=== PATIENT | male | born 2000 | race Caucasian/White ===

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

== ENCOUNTER 2020-04-03 18:35 | Observation (INO) | payer OTHER ==
[2020-04-03] MEDS ORDERED: ACETAMINOPHEN 500 MG TAB PO ONE (18:48)
[2020-04-03] MEDS ORDERED: SODIUM CHLORIDE 0.9% 1000ML 1,000 ML IVS ONE (18:48)
[2020-04-03] MEDS ORDERED: ASPIRIN (CHEWABLE) 81 MG TAB PO ONE (18:48)
--- NOTE | 2020-04-03 19:03 | ED.PDOC ---
History of Present Illness - General Chief Complaint: Problem Stated Complaint: RLQ abd pain and dificulty urinating Time Seen by Provider: 04/03/20 18:48 - History of Present Illness Initial Comments: 19 yo M no significant PMH immunizations up to date presents to ED Mother at bedside c/o RLQ abdominal pain and dysuria x 1 day. Denies fever cough sob recent travel or contact with covid19. Denies fever chills nausea vomiting diarrhea admits chest pain denies sob diaphoresis. No change in diet rest bowel or bladder. Denies drinking or smoking denies FH HTN DM has no PMD for follow up no other c/o today. PPE worn-N95 surgical mask with attached face shield over N95 goggles gloves and face shield over that Allergies/Adverse Reactions: Allergies NO KNOWN ALLERGY Allergy (Verified 04/03/20 18:52) Review of Systems - Review of Systems Constitutional: States: see HPI EENTM: States: see HPI Respiratory: States: see HPI Cardiology: States: see HPI Gastrointestinal/Abdominal: States: see HPI Genitourinary: States: see HPI Musculoskeletal: States: see HPI Skin: States: see HPI Neurological: States: see HPI Endocrine: States: see HPI Hematologic/Lymphatic: States: see HPI All other Systems: Reviewed and Negative Past Medical History (General) - Patient Medical History Hx Seizures: No Hx Stroke: No Hx Dementia: No Hx Asthma: Yes Hx of COPD: No 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 Hx Congestive Heart Failure: No Hx Pacemaker: No Hx Hypertension: No Hx Thyroid Disease: No Hx Diabetes: No Hx Gastroesophageal Reflux: Yes Hx Renal Disease: No Hx Cancer: No Hx of HIV: No Hx Hepatitis C: No Hx MRSA: No Surgical History: tonsillectomy, other - Vaccination History Hx Tetanus, Diphtheria Vaccination: No Hx Influenza Vaccination: Yes Hx Pneumococcal Vaccination: No Immunizations Up to Date: Yes - Social History Hx Tobacco Use: No Hx Chewing Tobacco Use: No Hx Alcohol Use: No Hx Substance Use: No Hx Substance Use Treatment: No Hx Depression: No Hx Physical Abuse: No - Female History Patient is a Female of Child Bearing Age (10 -59 yrs old): No Patient : No Family Medical History - Family History Mother Family History: No Known Living Status: Still Living Hx Family Asthma: Yes Physical Exam - Physical Exam General Appearance: No apparent distress Eye Exam: bilateral normal Ears, Nose, Throat: normal ENT inspection Neck: non-tender, full range of motion Respiratory: no respiratory distress Cardiovascular/Chest: regular rate, rhythm Gastrointestinal/Abdominal: soft, other - tender RLQ Rectal Exam: deferred Back Exam: CVA tenderness (R) Extremity: normal range of motion, non-tender Neurologic: no motor/sensory deficits Skin Exam: normal color Progress - Progress Progress: 04/03/20 19:04 A/P-Abdominal Pain, Chest Pain, Flank Pain, Dysuria-iv bolus asa tylenol cbc cmp lipase trop ekg cxr ct abdomen pelvis cafeteria monitor pulse ox reassess 04/03/20 19:27 EXAM: Chest,1 View CLINICAL INDICATION: 19-year-old male with pain. TECHNIQUE: Single view, AP portable chest was obtained. COMPARISON: 12/23/2018. FINDINGS: Unremarkable cardiac and mediastinal silhouette. Heart size is normal. Lungs are clear without focal opacity, pneumothorax or pleural effusions. The visualized bones are within normal limits. IMPRESSION: No acute cardiopulmonary abnormalities. Electronically signed by: Jessica Mariano MD 04/03/2020 7:17 PM CDT 04/03/20 19:32 EXAM: Abdoment/Pelvis w/o Contrast CLINICAL INDICATION: 19-year-old male with RIGHT lower quadrant pain. COMPARISON: 08/25/2017. EXAMINATION: CT of the abdomen and pelvis was performed without intravenous or oral contrast. Multiplanar reformatted images were provided. This exam was performed according to our departmental dose optimization program which includes use of automated exposure control, adjustment of the mA and/or kV according to patient size and/or use of iterative reconstruction technique. FINDINGS: Evaluation of solid organ pathology is limited secondary to lack of intravenous contrast. Within these limitations, the following observations are made. Chest: Evaluation through the lung bases reveals no focal opacity, pleural effusion or pneumothorax. Heart size is within normal limits. No pericardial effusion. Abdomen and pelvis: The liver, gallbladder, pancreas, spleen, bilateral kidneys and bilateral adrenal glands are within normal limits. The vessels are normal in caliber. No abdominopelvic lymph nodes are noted to be pathologically enlarged by CT measurement criteria. The bowel is within normal limits without abnormal bowel wall thickness or bowel dilation. No free air. No free abdominopelvic fluid collections. The appendix is identified coursing medially from the inferior most aspect of the cecum enlarged with periappendiceal stranding measuring up to 18 mm compatible with acute appendicitis. Within the midportion of the appendix is an appendicolith measuring 10 mm x 8 mm. While stranding and appearance of phlegmon suggest the appendix, no discrete organizing fluid collection is identified to suggest abscess formation. No free air is identified, however microperforation cannot be completely excluded. No extraluminal gas is clearly identified. The osseous structures reveal bilateral pars interarticularis defects of L5-S1 otherwise within normal limits. IMPR ESSION: 1. Acute appendicitis as detailed above. 2. Bilateral pars interarticularis defects L5-S1. Dr. Johns was notified by telephone of the critical findings on 04/03/2020 at 1926 hours hours. Electronically signed by: Jessica Mariano MD 04/03/2020 7:27 PM CDT Dx-Acute Appendicitis 04/03/20 19:43 Laboratory Tests 04/03/20 04/03/20 04/03/20 18:56 18:56 18:56 WBC 17.9 H RBC 5.93 Hgb 15.8 Hct 46.0 MCV 77.5 L MCH 26.6 L MCHC 34.3 RDW 13.8 Plt Count 294 MPV 7.9 Absolute Neuts (auto) 11.10 H Absolute Lymphs (auto) 4.60 H Absolute Monos (auto) 1.70 H Absolute Eos (auto) 0.40 Absolute Basos (auto) 0.10 Neutrophils % 61.9 Lymphocytes % 25.6 Monocytes % 9.7 H Eosinophils % 2.1 Basophils % 0.7 PT 9.9 INR 1.00 PTT (SP) 26.0 Sodium 139 Potassium 3.9 Chloride 100 L Carbon Dioxide 28 Anion Gap 14.9 BUN 15 Creatinine 0.78 BUN/Creatinine Ratio 19.2 Random Glucose 112 H Serum Osmolality 279.1 Calcium 9.2 Total Bilirubin 0.8 AST 24 ALT 36 Alkaline Phosphatase 66 L Troponin I Serum Total Protein 7.9 Albumin 4.7 Globulin 3.2 Albumin/Globulin Ratio 1.5 Lipase 28 Urine Color Urine Appearance Urine pH Ur Specific [place] Urine Protein Urine Glucose (UA) Urine Ketones Urine Blood Urine Nitrite Urine Bilirubin Urine Urobilinogen Ur Leukocyte Esterase Urine RBC Urine WBC Ur Epithelial Cells Urine Bacteria Urine Mucus 04/03/20 04/03/20 18:56 18:56 WBC RBC Hgb Hct MCV MCH MCHC RDW Plt Count MPV Absolute Neuts (auto) Absolute Lymphs (auto) Absolute Monos (auto) Absolute Eos (auto) Absolute Basos (auto) Neutrophils % Lymphocytes % Monocytes % Eosinophils % Basophils % PT INR PTT (SP) Sodium Potassium Chloride Carbon Dioxide Anion Gap BUN Creatinine BUN/Creatinine Ratio Random Glucose Serum Osmolality Calcium Total Bilirubin AST ALT Alkaline Phosphatase Troponin I < 0.02 Serum Total Protein Albumin Globulin Albumin/Globulin Ratio Lipase Urine Color Yellow Urine Appearance Clear Urine pH 7.0 Ur Specific [place] 1.025 Urine Protein 30 Urine Glucose (UA) Negative Urine Ketones Trace Urine Blood Negative Urine Nitrite Negative Urine Bilirubin Small H Urine Urobilinogen >= 8.0 H Ur Leukocyte Esterase Negative Urine RBC 0-1 Urine WBC 0-1 Ur Epithelial Cells 0 Urine Bacteria 0 Urine Mucus Moderate Departure - Departure Clinical Impression: Dysuria Acute appendicitis Qualifiers: Acute appendicitis type: unspecified acute appendicitis type Qualified Code(s): K35.80 - Unspecified acute appendicitis Abdominal pain Qualifiers: Abdominal location: right lower quadrant Qualified Code(s): R10.31 - Right lower quadrant pain Time of Disposition: 20:00 Disposition: Discharge to Home or Self Care Condition: Fair Departure Forms: ED Discharge - Pt. Copy, Patient Portal Self Enrollment Diet: other Decision To Admit - Decistion To Admit Decision to Admit Date: 04/03/20 Decision to Admit Time: 20:00 - Dr. Redmond Surgeon Transfer to Outside Facility - Transfer Information Decision to Transfer Date: 04/03/20 Decision to Transfer Time: 19:46 Reason for Transfer: required specialist not available Accepting Provider:: Dr. Crawford Accepting Facility: [facility]
--- NOTE | 2020-04-03 19:19 | RAD ---
EXAM: Chest,1 View CLINICAL INDICATION: 19-year-old male with pain. TECHNIQUE: Single view, AP portable chest was obtained. COMPARISON: 12/23/2018. FINDINGS: Unremarkable cardiac and mediastinal silhouette. Heart size is normal. Lungs are clear without focal opacity, pneumothorax or pleural effusions. The visualized bones are within normal limits. IMPRESSION: No acute cardiopulmonary abnormalities. Electronically signed by: Jessica Mariano MD 04/03/2020 7:17 PM CDT
--- NOTE | 2020-04-03 19:29 | CT ---
EXAM: Abdoment/Pelvis w/o Contrast CLINICAL INDICATION: 19-year-old male with RIGHT lower quadrant pain. COMPARISON: 08/25/2017. EXAMINATION: CT of the abdomen and pelvis was performed without intravenous or oral contrast. Multiplanar reformatted images were provided. This exam was performed according to our departmental dose optimization program which includes use of automated exposure control, adjustment of the mA and/or kV according to patient size and/or use of iterative reconstruction technique. FINDINGS: Evaluation of solid organ pathology is limited secondary to lack of intravenous contrast. Within these limitations, the following observations are made. Chest: Evaluation through the lung bases reveals no focal opacity, pleural effusion or pneumothorax. Heart size is within normal limits. No pericardial effusion. Abdomen and pelvis: The liver, gallbladder, pancreas, spleen, bilateral kidneys and bilateral adrenal glands are within normal limits. The vessels are normal in caliber. No abdominopelvic lymph nodes are noted to be pathologically enlarged by CT measurement criteria. The bowel is within normal limits without abnormal bowel wall thickness or bowel dilation. No free air. No free abdominopelvic fluid collections. The appendix is identified coursing medially from the inferior most aspect of the cecum enlarged with periappendiceal stranding measuring up to 18 mm compatible with acute appendicitis. Within the midportion of the appendix is an appendicolith measuring 10 mm x 8 mm. While stranding and appearance of phlegmon suggest the appendix, no discrete organizing fluid collection is identified to suggest abscess formation. No free air is identified, however microperforation cannot be completely excluded. No extraluminal gas is clearly identified. The osseous structures reveal bilateral pars interarticularis defects of L5-S1 otherwise within normal limits. IMPRESSION: 1. Acute appendicitis as detailed above. 2. Bilateral pars interarticularis defects L5-S1. Dr. Johns was notified by telephone of the critical findings on 04/03/2020 at 1926 hours hours. Electronically signed by: Jessica Mariano MD 04/03/2020 7:27 PM CDT
[2020-04-03] MEDS ORDERED: cefOXitin SODIUM 2 GM in SODIUM CHL 0.9% 50ML MIN-BAG+ 50 ML IVPB ONE (19:35)
[2020-04-03] MEDS ORDERED: MORPHINE SULFATE INJ 10 MG/ML VIAL IV ONE ×2 (19:37→20:05)
[2020-04-03] MEDS ORDERED: ONDANSETRON INJ 4 MG/2 ML VIAL IV ONE (19:38)
[2020-04-03] MEDS ORDERED: SODIUM CHLORIDE 0.9% (FLUSH) 10 ML SYG IV PRN (20:52)
[2020-04-03] MEDS ORDERED: KCL 20 MEQ/NS 1,000 ML IVS PRN (20:52)
[2020-04-03] MEDS ORDERED: IV SET AND CAP CHANGE INJ INJ SCH (21:00)
[2020-04-03] MEDS ORDERED: PROMETHAZINE HCL INJ 12.5 MG in SODIUM CHLORIDE 0.9% 50ML 50 ML IVPB PRN (21:02)
--- NOTE | 2020-04-03 21:28 | HP ---
CHIEF COMPLAINT: Acute appendicitis. HISTORY OF PRESENT ILLNESS: This is a 19-year-old man who presented to the Emergency Room with less than one day of right lower quadrant pain. There are no precipitating or alleviating factors. He denied any fevers or chills. No nausea, vomiting or diarrhea. PAST MEDICAL HISTORY: None. ALLERGIES: None. MEDICATIONS: None. FAMILY HISTORY: Noncontributory. REVIEW OF SYSTEMS: CONSTITUTIONAL: No fevers, no chills. HEENT: No headache, visual changes, sore throat. RESPIRATORY: No cough or wheeze. CARDIOVASCULAR: No chest pain or palpitations. GASTROINTESTINAL: As above. GENITOURINARY: No frequency, dysuria or hematuria. EXTREMITIES: No edema or pain. NEUROLOGIC: No complaints. PHYSICAL EXAMINATION: VITAL SIGNS: Afebrile. Vital signs are normal. GENERAL: The patient is in no acute distress. HEENT: Normocephalic, atraumatic. Pupils equal and reactive. Sclerae anicteric. Oral mucosa is moist. NECK: Supple. No adenopathy, jugular venous distention or thyromegaly. CHEST: Clear and equal bilaterally. No wheezing or crackles. ABDOMEN: Moderately obese, soft. There is focal right lower quadrant tenderness. No evidence of diffuse peritonitis. No CVA tenderness. No evidence of hernias. EXTREMITIES: No cyanosis, clubbing or edema. LABORATORY: White count 17, hematocrit 46, platelet count 294. CMP is essentially normal. Urinalysis shows no evidence of acute infection. RADIOLOGY: CT scan had been done and shows acute noncomplicated appendicitis. IMPRESSION: 1. Acute appendicitis. PLAN: Laparoscopic appendectomy. #[id number] [facility]
[2020-04-03] MEDS ORDERED: cefOXitin SODIUM 1 GM in SODIUM CHL 0.9% 50ML MIN-BAG+ 50 ML IVPB SCH (21:30)
[2020-04-03] MEDS: MORPHINE SULFATE INJ 10 MG/ML VIAL IV PRN (21:58)
[2020-04-03] MEDS: DEX 5% W/NACL 0.45% 1000ML 1,000 ML IVS PRN (21:59)
[2020-04-04] MEDS: MORPHINE SULFATE INJ 10 MG/ML VIAL IV PRN ×5 (00:14→08:03)
[2020-04-04] MEDS ORDERED: SODIUM CHL 0.9% 50ML MIN-BAG+ 50 ML IVPB ONE (03:11)
[2020-04-04] MEDS: cefOXitin SODIUM 1 GM in SODIUM CHL 0.9% 50ML MIN-BAG+ 50 ML IVPB SCH ×2 (03:32→11:07)
[2020-04-04] MEDS: DEX 5% W/NACL 0.45% 1000ML 1,000 ML IVS PRN (05:47)
[2020-04-04] MEDS ORDERED: KETAMINE HCL 100 MG/ML VIAL ONE (08:52)
[2020-04-04] MEDS ORDERED: BUPIVACAINE 0.5% 30 ML VIAL INJ ONE (08:52)
[2020-04-04] MEDS ORDERED: HYDROmorphone HCL INJ 2 MG/ML VIAL ONE (08:52)
[2020-04-04] MEDS ORDERED: ROCURONIUM BROMIDE 10 MG/ML VIAL ONE (08:52)
[2020-04-04] MEDS ORDERED: SUGAMMADEX SODIUM 200 MG/2 ML VIAL IV ONE (08:52)
[2020-04-04] MEDS ORDERED: DEXMEDETOMIDINE HCL 200 MCG/2 ML INJ IV ONE (08:52)
[2020-04-04] MEDS ORDERED: MIDAZOLAM INJ 5 MG/5 ML VIAL ONE (08:53)
[2020-04-04] MEDS ORDERED: FAMOTIDINE 10 MG/ML ML IV ONE (08:53)
[2020-04-04] MEDS ORDERED: BUPIVACAINE 0.5% W/EPI 30 ML VIAL INJ ONE ×2 (08:53→09:56)
[2020-04-04] MEDS ORDERED: ELECTROLYTE-A 1,000 ML IVS ONE (09:13)
[2020-04-04] MEDS ORDERED: HYDROcodone 5MG/APAP 325MG 1 EA TAB PO PRN (10:19)
[2020-04-04] MEDS ORDERED: ONDANSETRON INJ 4 MG/2 ML VIAL IV PRN (10:19)
[2020-04-04] MEDS ORDERED: KCL 20MEQ/D5 1/2NS 1,000 ML IVS PRN (10:19)
--- NOTE | 2020-04-04 11:23 | OP ---
PREPARATION DIAGNOSIS: 1. Acute appendicitis. POSTOPERATIVE DIAGNOSIS: 1. Acute appendicitis. PROCEDURE: 1. Laparoscopic appendectomy. SURGEON: Robbi Redmond MD ANESTHESIA: General local. FINDINGS: He had acute supportive nonperforated appendix.. COMPLICATIONS: None. Estimated Blood Loss: None. SPECIMEN: Appendix. PLAN: Observation. INDICATION: 19 year-old man came in last night with evidence of acute appendicitis, nonperforated. He was admitted for pain, control, IV antibiotics and we are taking him to surgery now. PROCEDURE: General anaesthesia was induced. He was prepped and draped in sterile fashion. 0.5% Marcaine with epinephrine was used along the incision sites while obtaining upward traction. A cut was made in the base of the umbilicus. A Veress needle was introduced. There was free flow of fluid into the peritoneal cavity which was insufflated to an appropriate level with CO2 gas. The 5 mm trocar was placed followed by the camera. There was no evidence of bleeding or bowel injury. The patient was positioned and the suprapubic and right lower quadrant ports were placed under direct visualization without difficulty. The area was examined. The appendix was behind adhesions posterior to the terminal ileum but these are easily taken up, we identified the tip of the appendix and elevated, dissected out at least 2 garcia loads to take the mesoappendix serially and then the base of the appendix was well-visualized. It was thickened but noninvolved with infection. There was no evidence of a fecalith on my examination of this area so the blue staple load was used across it, the appendix placed in the bag and removed. The staple line was examined and it appears completely intact. The other staple lines are intact with no bleeding. The area was irrigated that we had dissected and everything looked good. At this point, the suprapubic fascia was closed with #0 Vicryl using the suture passer. It was air tight and non-bleeding. The remaining trocars were removed, the abdomen desufflated. The wounds were closed with Monocryl dressing applied. He was awakened and taken to Recovery to be admitted. [facility][id number] [facility]
[2020-04-04 14:42] VITALS: BP 122/67; TEMP 98.4; O2SAT 95
[2020-04-04] MEDS ORDERED: SODIUM CHLORIDE 0.9% 50 ML VIAL INJ ONE (15:44)
[2020-04-04] MEDS ORDERED: MAGNESIUM SULFATE INJ 1 GM/2 ML VIAL IVPB ONE (15:44)
[2020-04-04] MEDS ORDERED: LIDOCAINE 1% 10 ML VIAL INJ ONE (15:44)
[2020-04-04] MEDS ORDERED: DEXAMETHASONE INJ 10 MG/ML VIAL IV ONE (15:44)
[2020-04-04] MEDS ORDERED: PROPOFOL 200 MG/20 ML VIAL IV ONE (15:44)
--- NOTE | 2020-04-08 10:31 | DS ---
REASON FOR ADMISSION: Acute appendicitis. PROCEDURES: Laparoscopic appendectomy. HOSPITAL COURSE: The patient presented to the Emergency Room with acute appendicitis. He underwent laparoscopic appendectomy, which was uncomplicated. He was admitted for observation. Postoperatively, he did well and had a normal postoperative course and was able to be discharged the following day without evidence of complications. PLAN: Discharge home. Regular diet, advance as tolerated. May shower in 24 hours. Prescription for Tylenol #3 was given. He is to followup in two weeks. FINAL DIAGNOSIS: 1. Acute appendicitis status post laparoscopic appendectomy. PROGNOSIS: Good. #[id number] [facility]
== END 2020-04-04 15:45 | disposition home or self-care (01) ==
LOC: ER 18:35 → MS 21:28
PROVIDERS: ADMIT Surgery; ATTEND Surgery
DX: K35.890 Other acute appendicitis without perforation or gangrene (principal); R30.0 Dysuria; J45.909 Unspecified asthma, uncomplicated; K21.9 Gastro-esophageal reflux disease without esophagitis; Q24.8 Other specified congenital malformations of heart
CPT/HCPCS: 96361 ×2; 96366; 96365; 96375; 96376 ×2; J0694 ×4; J1170; J2270 ×9; J2405; J3490; J7030; J3475; J2250; J1100; A4216 ×2; J7050 ×3; J7799 ×2; 80053; 36415 ×3; 81001; 85025; 87040 ×2; 83690; 85730; 85610; 84484; 88304; 71045; 74176; 99285; 93005; 44970; 00840

== ENCOUNTER 2020-07-22 18:08 | Emergency (ER) | payer SELFPAY ==
[2020-07-22] MEDS ORDERED: HYDROmorphone HCL INJ 2 MG/ML VIAL IV ONE ×3 (18:21→19:13)
[2020-07-22] MEDS ORDERED: PROMETHAZINE HCL INJ 12.5 MG in SODIUM CHLORIDE 0.9% 50ML 50 ML IVPB ONE (18:21)
[2020-07-22] MEDS ORDERED: SODIUM CHLORIDE 0.9% 1000ML 1,000 ML IVS ONE (18:24)
[2020-07-22] MEDS ORDERED: ALUM & MAG HYDROX-SIMETHICONE 30 ML, LIDOCAINE VISCOUS 2% 15 ML PO ONE ×2 (18:24)
[2020-07-22] MEDS ORDERED: FAMOTIDINE IVPB ONE (18:55)
[2020-07-22] MEDS ORDERED: HYDROmorphone HCL INJ 2 MG/ML VIAL ONE (19:11)
[2020-07-22] MEDS ORDERED: FAMOTIDINE IV PREMIX 20 MG in PREMIX BAG 1 BAG IVPB ONE (19:16)
--- NOTE | 2020-07-22 19:44 | RAD ---
EXAM DESCRIPTION: Chest,1 View CLINICAL HISTORY: 19 years Male ABD PAIN COMPARISON: Portable chest dated 04/03/2020 TECHNIQUE: Portable AP view of the chest is obtained. FINDINGS IN THE CHEST: Heart: Allowing for magnification factors related to AP portable technique and body habitus, the heart is normal in size and configuration. Vasculature: [] There is no evidence of aortic aneurysm or acute findings. The pulmonary vascularity is normal. Mediastinum: No evidence of mass or adenopathy. Lungs: Suspect the appearance of increased density along the lateral half of the right hemithorax results from LPO positioning and underpenetrated technique when compared to the left side. Pleura: There are no pleural effusions. There are no pneumothoraces. Osseous structures: No evidence of acute fracture, osteolytic lesions or osteoblastic lesions. Tubes and catheters: None Chest wall: Unremarkable. Visualized Abdomen: Unremarkable. No evidence of free air under the hemidiaphragms. IMPRESSION: Suspect the appearance of increased density along the lateral half of the right hemithorax results from LPO positioning and underpenetrated technique as the lungs appear clear on an abdominal film obtained at the same time. Remainder of findings as described above. Electronically signed by: Senia Eisenberg MD 07/22/2020 7:43 PM [facility]
--- NOTE | 2020-07-22 19:47 | RAD ---
PROCEDURE: XR Abdomen, 2 Views CLINICAL INDICATION: The patient is 19 years years old, Male; ABD PAIN TECHNIQUE: Supine and upright views of the abdomen are obtained. The upright view includes the entire chest. COMPARISON: No relevant prior studies available. FINDINGS: THORAX: The lungs are clear and there is no pleural fluid.. Allowing for magnification factors related to large body habitus and AP portable technique, the heart is probably at the upper limits of normal in size.. INTRAPERITONEAL SPACE: There is no evidence of free air. GASTROINTESTINAL TRACT: The bowel gas pattern demonstrates a relative paucity of gas and fecal content with no evidence of obstruction. ORGANS: There is no organomegaly. BONES/JOINTS: There are no discernible acute osseous abnormalities or areas of osseous destruction/osteoblastic disease. OTHER FINDINGS: There are no abnormal intra-abdominal calcifications. IMPRESSION: No acute findings in the abdomen or pelvis. Electronically signed by: Senia Eisenberg MD 07/22/2020 7:46 PM ELECTRONEURODIAGNOSTIC TECHNICIAN
--- NOTE | 2020-07-22 22:42 | ED.PDOC ---
History of Present Illness - General Chief Complaint: Abdominal Pain Stated Complaint: ingestion of a detox solution Time Seen by Provider: 07/22/20 18:20 Information Source: patient Exam Limitations: no limitations - History of Present Illness Initial Comments: PATIENT DEVELOPED SEVERE EPIGASTRIC PAIN AFTER DRINKING A HOMEMADE "DETOX DRINK" RECOMMENDED BY A FRIENDS "PAIN MEDICINE" DOCTOR. THE DRINK CONSISTED OF APPLE VINEGAR CIDER, CEYANNE PEPPER AND SOME OTHER SPICES. PATIENT HAS A HISTORY OF "ULCERS" AND ANXIETY D/O INCLUDING PANIC D/O. PATIENT SHORTLY AFTERWARDS BEGAN SCREAMING AND HYPERVENTILATING. Abdominal Pain Onset Location: epigastric Pain Radiation: no radiation Quality: severe, cramping Improving Factors: nothing Worsening Factors: nothing Associated Symptoms: denies symptoms Review of Systems - Review of Systems Constitutional: States: no symptoms reported EENTM: States: no symptoms reported Respiratory: States: no symptoms reported Cardiology: States: no symptoms reported Gastrointestinal/Abdominal: States: no symptoms reported Genitourinary: States: no symptoms reported Musculoskeletal: States: no symptoms reported Skin: States: no symptoms reported Neurological: States: no symptoms reported Endocrine: States: no symptoms reported Unable to Obtain Due To: condition, other - INTIALLY UNCOOPERATIVE Past Medical History (General) - Patient Medical History Hx Seizures: No Hx Stroke: No Hx Dementia: No Hx Asthma: Yes Hx of COPD: No 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 Hx Congestive Heart Failure: No Hx Pacemaker: No Hx Hypertension: No Hx Thyroid Disease: No Hx Diabetes: No Hx Gastroesophageal Reflux: Yes Hx Renal Disease: No Hx Cancer: No Hx of HIV: No Hx Hepatitis C: No Hx MRSA: No Surgical History: appendectomy, tonsillectomy - Vaccination History Hx Tetanus, Diphtheria Vaccination: No Hx Influenza Vaccination: No Hx Pneumococcal Vaccination: No - Social History Hx Tobacco Use: Yes Hx Chewing Tobacco Use: No Hx Alcohol Use: No Hx Substance Use: No Hx Substance Use Treatment: No Hx Depression: No Hx Physical Abuse: No Hx Emotional Abuse: No - Female History Patient : No Family Medical History - Family History Mother Family History: No Known Living Status: Still Living Hx Family Asthma: Yes Physical Exam - Physical Exam General Appearance: Agitated, Anxious, Well Developed, Well Groomed, Well Hydrated, Well Nourished, Other - HYSTERICAL HYPERVENTILATING Eyes, Ears, Nose, Throat Exam: normal ENT inspection Neck: non-tender, full range of motion, supple, normal inspection Respiratory: chest non-tender, lungs clear, normal breath sounds, no respiratory distress Cardiovascular/Chest: normal peripheral pulses, regular rate, rhythm, no edema, no gallop Peripheral Pulses: No deficit Gastrointestinal/Abdominal: normal bowel sounds, non tender, soft, no organomegaly Back Exam: normal inspection, no CVA tenderness, no vertebral tenderness Extremity: normal range of motion, non-tender, normal inspection, no pedal edema, other - CARPAL SPASM BILAT Neurologic: alert, normal mood/affect, oriented x 3 Skin Exam: normal color, warm/dry, cyanosis Lymphatic: no adenopathy Departure - Departure Clinical Impression: Anxiety attack Gastritis Qualifiers: Gastritis type: other gastritis Chronicity: unspecified Gastritis bleeding: without bleeding Qualified Code(s): K29.60 - Other gastritis without bleeding Time of Disposition: 22:44 Disposition: Discharge to Home or Self Care Condition: Good Departure Forms: ED Discharge - Pt. Copy, Patient Portal Self Enrollment Instructions: DI for Abdominal Pain-Adult, Gastritis, Panic Disorder Additional Instructions: PLEASE SCHEDULE FOLLOW UP WITH PCP TO DISCUSS HIS SYMPTOMS.
[2020-07-23 00:32] VITALS: TEMP 98.1
[2020-07-23 00:34] VITALS: BP 94/49; O2SAT 95
== END 2020-07-22 23:30 | disposition home or self-care (01) ==
LOC: ER 18:08
DX: K29.60 Other gastritis without bleeding (principal); F41.9 Anxiety disorder, unspecified; F45.8 Other somatoform disorders; J45.909 Unspecified asthma, uncomplicated; Z87.891 Personal history of nicotine dependence
CPT/HCPCS: 36415; 71045; 74019; 80053; 80307; 85025; A4216; J1170; J2060; J2550; J3490; J7030